=== PATIENT | male | born 1995 | race African-American/Black ===

== ENCOUNTER 2020-05-05 21:22 | Emergency (ER) | payer SELFPAY ==
[2020-05-05] MEDS ORDERED: CEFTRIAXONE SODIUM 500 MG VIAL ONE (22:08)
[2020-05-05] MEDS ORDERED: LIDOCAINE HCL-MPF 1% 2ML VIAL ONE (22:09)
[2020-05-05] MEDS ORDERED: AZITHROMYCIN 250 MG TABLET PO ONE (22:09)
== END 2020-05-05 23:00 | disposition home or self-care (01) ==
LOC: EDH 21:22
DX: R30.0 Dysuria (principal)
CPT/HCPCS: 87486; 87797; 96372; 99283; J0696; J3490